=== PATIENT | female | born 1985 | race Hispanic/Latino ===

== ENCOUNTER 2017-09-10 07:26 | Outpatient (CLI) | payer MEDICAID | END 2017-09-10 07:27 | disposition home or self-care (01) | LOC: BICULT 07:26 | PROVIDERS: ATTEND Family Medicine | DX: Z34.82 Encounter for supervision of other normal pregnancy, second trimester (principal); Z3A.19 19 weeks gestation of pregnancy | CPT/HCPCS: 76805 ==

== ENCOUNTER 2018-01-23 13:15 | Outpatient (CLI) | payer OTHER | END 2018-01-23 13:16 | disposition home or self-care (01) | LOC: BICULT 13:15 | PROVIDERS: ATTEND Family Medicine | DX: O24.415 Gestational diabetes mellitus in pregnancy, controlled by oral hypoglycemic drugs (principal); Z3A.39 39 weeks gestation of pregnancy | CPT/HCPCS: 76816 ==

== ENCOUNTER 2018-02-02 01:37 | Inpatient (IN) | payer OTHER ==
[2018-02-02 02:12] VITALS: BMI 30.2
--- NOTE | 2018-02-02 03:42 | PDOC.LDHP ---
Labor and Delivery H&P Chief complaint: contractions HPI: 32 yo @ 39.3wks with pmhx of A2, GDM presents with contractions since yesterday morning. The contractions have been every 4 minutes for the past few hours and painful. She denies LOF but endorses a small amount of brownish discharge yesterday. She endorses good movement. For her GDM, she takes metformen 500mg ER daily and says her sugars are <140. She had an US done last week that showed the baby to be ~8 pounds. Current gestational age (weeks): 39 (39.3) Due date: 02/06/18 Grav: 2 Para: 1 OB History Details: 2006, male infant 8 # 11 oz Current complications: gestational diabetes (taking metformen 500mg ER daily) Abnormal US findings: No Past Medical History: none Current medications: pre- vitamins Previous surgical history: none Allergies/Adverse Reactions: Allergies Allergy/AdvReac Type Severity Reaction Status Date / Time No Known Allergies Allergy Verified 02/02/18 02:13 Social history: none - Physical Exam Vital signs reviewed and normal: yes General: NAD, breathing through contractions Heart: RRR Lungs: CTAB Abdomen: gravid Extremeties: no edema FHT: category 1 Andres contractions every: every 5 minutes - Vaginal Exam cm dilated: 3 Effacement: 75% Station: -2 - OB Labs GBS: negative - Assessment 32 yo @ 39.3wks presents with contractions 1)sIUP 2)GDM, A2 -Will observe in L&D for 2 hours and evaluate for cervical change. Pt currently in latent labor. Will monitor baby via NST. Currently cat 1 strip. Mom GBS negative. Review of Systems - Review of Systems Constitutional: denies: chills, fever EENTM: reports: no symptoms reported Respiratory: reports: no symptoms reported Cardiology: reports: no symptoms reported Gastrointestinal/Abdominal: reports: no symptoms reported Genitourinary: reports: discharge, other (denies vaginal bleeding or LOF). denies: dysuria Musculoskeletal: reports: no symptoms reported Skin: reports: no symptoms reported Neurological: reports: no symptoms reported Endocrine: reports: no symptoms reported Hematologic/Lymphatic: reports: no symptoms reported
[2018-02-02] MEDS ORDERED: Ibuprofen 800 MG TAB PO PRN (05:23)
[2018-02-02] MEDS ORDERED: Lidocaine 1% (PF) 30 ML VIAL SC PRN (05:23)
[2018-02-02] MEDS ORDERED: Promethazine HCl 25 MG/ML VIAL IM PRN ×2 (05:23→09:07)
[2018-02-02] MEDS ORDERED: Acetaminophen 500 MG TAB PO PRN (05:23)
[2018-02-02] MEDS ORDERED: Ondansetron HCl/PF 4 MG/2 ML Vial IVP PRN ×2 (05:23→09:07)
[2018-02-02] MEDS ORDERED: Butorphanol Tartrate 1 MG/ML VIAL SLOW IVP PRN (05:23)
[2018-02-02] MEDS: NS / Oxytocin 40 units/1000ml 1,000 ML IV PRN ×2 (06:00→07:15)
[2018-02-02 06:21] LABS: Hemoglobin 12.7 g/dL (12.0-16.0); Mean Corpuscular HGB CONC 33.4 g/dL (32.0-36.0); Mean Corpuscular Hemoglobin 28.4 pg (27.0-31.0); Mean Corpuscular Volume 84.9 fL (78.0-98.0); Mean Platelet Volume 9.5 fL (7.4-10.4); Platelet Count 190 thou/uL (130-400); RBC Distribution Width 12.6 % (11.5-14.5); Red Blood Cell (RBC) Count 4.47 mill/uL (4.20-5.40); White Blood Cell (WBC) Count 10.2 thou/uL (4.8-10.8)
[2018-02-02 06:56] LABS: Syphilis Antibody Nonreactive (Nonreactive); Syphilis Antibody Index 0.04 S/CO (<1.00 Non-Reactive)
[2018-02-02 06:58] LABS: HBSAg Index 0.16 S/CO (0-0.99); Hep B Surf Ag Non-Reactive S/CO (NonReactive)
--- NOTE | 2018-02-02 07:28 | OP ---
DATE OF PROCEDURE: 02/02/2018 PREOPERATIVE DIAGNOSIS: A 39 weeks G2, P1, type A2 diabetes spontaneous labor with rapid progress. POSTOPERATIVE DIAGNOSIS: A 39 weeks G2, P1, type A2 diabetes spontaneous labor with rapid progress. PROCEDURE PERFORMED: Spontaneous vaginal delivery with first-degree midline laceration. SURGEON: Salomon Ying M.D. ANESTHESIA: 1% local, lidocaine 10 mL. COMPLICATIONS: None. OPERATIVE FINDINGS: 1. Vigorous female , 9 and 9 Apgars, weight pending to nursery. 2. Intact placenta with 3-vessel cord. 3. First degree midline laceration repaired with 2-0 chromic. DESCRIPTION OF OPERATIVE PROCEDURE: The patient who presented had spontaneous rupture of membranes a t 05:45. She progressed very rapidly in labor. I was called to the room for delivery. Upon my arri coco in the room delivered the in a controlled manner and the was placed on the ma ternal abdomen. After approximately 90 seconds, the cord was clamped and cut. Cord blood sample was obtained without difficulty. The placenta delivered spontaneously shortly thereafter. Inspection o f the patient's perineum revealed a small first degree midline laceration, which was repaired after a pplying appropriate anesthetic with a 2-0 chromic. No other lacerations were noted. The patient was entered into routine care. As the patient is an A2 diabetic, but only on 500 mg of metfo rmin every day. We will stop metformin and check fasting glucose on Saturday a.m.
[2018-02-02] MEDS ORDERED: Prenatal Vitamin 1 TAB PO SCH ×2 (09:00→09:30)
[2018-02-02] MEDS ORDERED: Adacel (T-DAP) 0.5 ML VIAL IM ONE (09:07)
[2018-02-02] MEDS ORDERED: Milk Of Magnesia 30 ML UDCUP PO PRN (09:07)
[2018-02-02] MEDS ORDERED: diphenhydrAMINE 25 MG CAP PO PRN (09:07)
[2018-02-02] MEDS ORDERED: Lanolin Ointment 7 GM TUBE TOP PRN (09:07)
[2018-02-02] MEDS ORDERED: NS / Oxytocin 40 units/1000ml 1,000 ML IV SCH (09:07)
[2018-02-02] MEDS ORDERED: Benzocaine/Menthol 20-0.5% 60 ML CAN TOP PRN (09:07)
[2018-02-02] MEDS ORDERED: Zolpidem Tartrate 5 MG TAB PO PRN (09:07)
[2018-02-02] MEDS ORDERED: Bisacodyl 10 MG SUPP PR PRN (09:07)
[2018-02-02] MEDS ORDERED: Measles/Mumps/Rubella 10 MCG/0.5 ML VIAL SC ONE (09:07)
[2018-02-02] MEDS ORDERED: HYDROcodone/Acetaminophen 5/325 mg Tablet PO PRN ×2 (09:07)
[2018-02-02] MEDS: Docusate Calcium (SURFAK) 240 MG CAP PO SCH ×2 (09:37→21:53)
[2018-02-02] MEDS: Ibuprofen 800 MG TAB PO SCH ×2 (11:27→21:53)
[2018-02-03] MEDS: Ibuprofen 800 MG TAB PO SCH ×2 (04:59→13:28)
[2018-02-03 09:00] VITALS: BP 123/61; TEMP 97.6
[2018-02-03] MEDS ORDERED: Prenatal Vitamin 1 TAB PO SCH (09:00)
[2018-02-03] MEDS: Docusate Calcium (SURFAK) 240 MG CAP PO SCH (09:12)
== END 2018-02-03 17:30 | disposition home or self-care (01) | DRG 775 ==
LOC: L&D/OP 01:37 → L&D 06:30 → 3SW 08:48
PROVIDERS: ADMIT Family Medicine; ATTEND Family Medicine
PROC: 10E0XZZ Delivery of Products of Conception, External Approach (ICD-10-PCS; principal; 2018-02-02)
PROC: 0HQ9XZZ Repair Perineum Skin, External Approach (ICD-10-PCS; 2018-02-02)
DX: O24.425 Gestational diabetes mellitus in childbirth, controlled by oral hypoglycemic drugs (principal); Z3A.39 39 weeks gestation of pregnancy; Z37.0 Single live birth; O70.0 First degree perineal laceration during delivery
CPT/HCPCS: 36415; 36416; 85027; 86780; 86850; 86900; 86901; 87340; 99285; J2001